=== PATIENT | female | born 1945 | race Caucasian/White ===

== ENCOUNTER → 2017-07-06 | Outpatient (CLI) | payer OTHER ==
[~2017-07-06] MED LIST: ASACOL HD800 MG PO; ASPIRIN325 PO; CALCIUM 600 +1 EAC1 PO; COQ-10100 MG PO; COREG CR20 MG PO; DITROPAN XL5 M1 PO; EVISTA PO; FISH OIL + D31 EACH PO; MAVIK2 MG PO; MULTIVITAMINS1 EAC7 PO; OMEPRAZOLE 20 M20 MG PO; SIMVASTATIN40 MG PO; SPIRONOLACTONE25 M1 PO; VITAMIN D1000 UNI1 PO; XANAX 0.5 MG0.5 MG PO
--- NOTE | ~2017-07-06 | 2DMMODE ---
[facility] [address] [place] [address] 2 D/M-MODE ECHOCARDIOGRAM Name: DIANAGINOSANCHEZCHARLY JULIO C Room #: REG [facility]#: [id number] Admission: 07/06/17 Attend Phys: Ori Bonilla Discharge: Date of : 43 Date of Service: 07/06/17 1510 Report #: [id number] THIS REPORT FOR: //name// APPROVED REPORT Study performed: 07/06/2017 13:35:06 EXAM: Comprehensive 2D, Doppler, and color-flow Echocardiogram Patient Location: Echo lab Status: routine BSA: 1.67 BP: 124/66 mmHg Other Information Study Quality: Adequate Indications Cardiomyopathy 2D Dimensions RVDd: 30.84 mm LVEF(%): 40.16 (>50%) IVSd: 11.70 (7-11mm) LVOT Diam: 21.67 (18-24mm) LVDd: 39.33 mm PWd: 11.51 (7-11mm) Ascending Ao: 25.41 (22-36mm) LVDs: 31.77 (25-40mm) Aortic Root: 25.83 mm IVC: 14.00 mm Park's LVEF: 40.16 % Volumes Left Atrial Volume (Systole) Single Plane 4CH: 46.82 mL Single Plane 2CH: 48.56 mL LA ESV Index: 30.00 mL/m2 Aortic Valve AoV Peak Nemesio.: 1.07 m/s AO Peak Gr.: 4.56 mmHg LVOT Max P.56 mmHg LVOT Max V: 0.62 m/s ERA Vmax: 2.16 cm2 Mitral Valve E/A Ratio: 0.7 MV Decel. Time: 180.87 ms MV E Max Nemesio.: 0.75 m/s [facility] [place] [address] 2 D/M-MODE ECHOCARDIOGRAM Name: CHARLY DAVENPORT Room #: NICOLA Barrera#: [id number] Admission: 07/06/17 Attend Phys: Ori Bonilla Discharge: Date of : 43 Date of Service: 07/06/17 1510 Report #: [id number] MV A Nemesio.: 1.09 m/s MV PHT: 52.45 ms IVRT: 148.79 ms Pulmonary Valve PV Peak Nemesio.: 0.63 m/s PV Peak Gr.: 1.61 mmHg Pulmonary Vein P Vein S: 0.56 m/s P Vein A: 0.33 m/s P Vein D: 0.25 m/s P Vein A Dur.: 117.6 msec P Vein S/D Ratio: 2.24 Tricuspid Valve TR Peak Nemesio.: 2.78 m/s RAP Estimate: 5.00 mmHg TR Peak Gr.: 30.92 mmHg Left Ventricle The left ventricle is normal size. There is normal left ventricular wall thickness. Left ventricular systolic function is moderate to severely decreased. LVEF is 35%. Mild diastolic dysfunction is present (impaired relaxation pattern). Right Ventricle The right ventricle is normal size. The right ventricular systolic function is normal. Atria Left atrium is at the upper limits of normal. The right atrium size is normal. Aortic Valve The aortic valve is normal in structure. Trace aortic regurgitation. There is no aortic valvular stenosis. Mitral Valve The mitral valve is normal in structure. There is no mitral valve regurgitation noted. No evidence of mitral valve stenosis. Tricuspid Valve The tricuspid valve is normal in structure. Mild tricuspid regurgitation. Pulmonic Valve Pulmonic valve is not well visualized. Trace to mild pulmonic regurgitation. [address] [address] 2 D/M-MODE ECHOCARDIOGRAM Name: HERBSANCHEZCHARLY JULIO C Room #: REG [facility]#: [id number] Admission: 07/06/17 Attend Phys: Ori Mckinnonchonnsherry Discharge: Date of : 43 Date of Service: 07/06/17 1510 Report #: [id number] Great Vessels The aortic root is normal in size. IVC is normal in size and collapses >50% with inspiration. Pericardium No pericardial effusion <Conclusion> The left ventricle is normal size. Left ventricular systolic function is moderate to severely decreased. LVEF is 35%. Mild diastolic dysfunction is present (impaired relaxation pattern). There is no aortic valvular stenosis. No pericardial effusion <ELECTRONICALLY SIGNED> By: Ori Bonilla MD 07/06/171509 09 09 Ori Bonilla MD /INF
== END ==
LOC: CV 12:02
DX: I50.30 Unspecified diastolic (congestive) heart failure (principal); I25.5 Ischemic cardiomyopathy

== ENCOUNTER 2017-08-30 06:46 | Observation (INO) | payer OTHER ==
[~2017-08-30] VITALS: Ht 160 cm; Wt 59.9 kg
--- NOTE | ~2017-08-30 | D ---
[facility] [place] [address] DISCHARGE SUMMARY Name: CHARLY DAVENPORT JULIO C Room #: 210-P [facility] Jocy Barrera#: [id number] Admission: 08/30/17 Attend Phys: Ori Bonilla MD Discharge: 08/31/17 Date of : 43 Report #: [id number] THIS REPORT FOR: //name// CC: Ori Purvise Jorge HISTORY OF PRESENT ILLNESS: As you know, the patient is a 71-year-old with history of cardiomyopathy, status post ICD implantation, who I recently saw in clinic and had some episodes of arrhythmia that were ATP. As the patient only had a single chamber ICD, it was difficult to determine if this was due to an SVT or VT. I had the patient wore an external monitor and showed frequent episodes of supraventricular tachycardia. As such, she was brought in for EP study. During the EP study, she clearly had an atrial tachycardia arising from the high atrium. I initially mapped this to the superior aspect of the right atrium at a septal location. Ablation at this site did not result in termination. As such, I prepped the patient to go transseptal and when I placed my intracardiac catheter into the right atrium, there appeared to be a trace pericardial effusion. It was unknown if this was something chronic or may have been related to my catheter placement. As such, I decided not to heparinize the patient and proceed with transseptal procedure. The procedure was concluded at that point. HOSPITAL COURSE: The patient was monitored in the CCU. She remained hemodynamically stable. Post-ablation, I did perform an echocardiogram that showed a trace effusion and on the day of discharge, this effusion remained unchanged with a second repeat echo. The patient was doing well and was not having any issues, she denied any chest pain, shortness of breath, PND, orthopnea and no significant groin pain. On telemetry, she did still have some episodes of atrial tachycardia, which were asymptomatic. She was tolerating the Multaq therapy, which I initiated yesterday. As such, she was deemed stable for discharge home with instructions to follow up in 2 weeks. Samples of Multaq were given to the patient prior to discharge. By: [id number] Ori Bonilla MD /nt
--- NOTE | ~2017-08-30 | 2DMMODE ---
[facility] [address] [employer] [place] [address] 2 D/M-MODE ECHOCARDIOGRAM Name: CHARLY DAVENPORT JULIO C Room #: 210-P ADM IN M.R.#: [id number] Admission: 08/30/17 Attend Phys: Ori Bonilla Discharge: Date of : 43 Date of Service: 08/30/17 1409 Report #: [id number] THIS REPORT FOR: //name// APPROVED REPORT Study performed: 08/30/2017 13:32:28 EXAM: Comprehensive 2D Echocardiogram Patient Location: Bedside Room #: 210 Status: routine BSA: 1.63 HR: 89 bpm BP: 145/69 mmHg Other Information Study Quality: Adequate Indications Effusion S^P ablation Left Ventricle The left ventricle is normal size. There is akinesis in the apical wall. There is hypokinesis in the apical anterior wall. There is hypokinesis in the apical septal wall. There is hypokinesis in the mid-anteroseptal wall. There is normal left ventricular wall thickness. Left ventricular systolic function is moderately decreased. LVEF is 35-40%. Right Ventricle The right ventricle is normal size. The right ventricular systolic function is normal. Device lead is present in the right ventricle. Atria Left atrium is dilated. The right atrium size is normal. Device lead is present in the right atrium. Aortic Valve The aortic valve is normal in structure. Mitral Valve The mitral valve is normal in structure. Tricuspid Valve The tricuspid valve is normal in structure. [facility] [address] [place] [address] 2 D/M-MODE ECHOCARDIOGRAM Name: CHARLY DAVENPORT JULIO C Room #: 210-P [facility] IN M.R.#: [id number] Admission: 08/30/17 Attend Phys: Ori Mckinnoncoxhealthsherry Discharge: Date of : 43 Date of Service: 08/30/17 1409 Report #: [id number] Pulmonic Valve Pulmonic valve is not well visualized. Great Vessels The aortic root is normal in size. IVC is normal in size and collapses >50% with inspiration. Pericardium Trace anterior pericardial effusion. <Conclusion> The left ventricle is normal size. There is akinesis in the apical wall. There is hypokinesis in the apical anterior wall. There is hypokinesis in the apical septal wall. There is hypokinesis in the mid-anteroseptal wall. LVEF is 35-40%. Device lead is present in the right ventricle. Left atrium is dilated. The right atrium size is normal. Device lead is present in the right atrium. The aortic valve is normal in structure. The mitral valve is normal in structure. The tricuspid valve is normal in structure. Pulmonic valve is not well visualized. Trace anterior pericardial effusion. <ELECTRONICALLY SIGNED> By: Edd Nichole MD 08/30/17 1409 08 08 Edd Nichole MD /INF
--- NOTE | ~2017-08-30 | 2DMMODE ---
[facility] [place] [address] 2 D/M-MODE ECHOCARDIOGRAM Name: CHARLY DAVENPORT JULIO C Room #: 210-P ADM IN M.R.#: [id number] Admission: 08/30/17 Attend Phys: Ori Bonilla Discharge: Date of : 43 Date of Service: 08/31/17 1050 Report #: [id number] THIS REPORT FOR: //name// APPROVED REPORT Study performed: 08/31/2017 08:43:25 EXAM: Comprehensive 2D, Doppler, and color-flow Echocardiogram Patient Location: Bedside Room #: 210 Status: routine BSA: 1.62 HR: 93 bpm BP: 103/60 mmHg Other Information Study Quality: Adequate Indications Pericardial Effusion ICD, S^P Ablatioin. Left Ventricle The left ventricle is normal size. Hypokinesis of septum and anterior cheng There is normal left ventricular wall thickness. Left ventricular ejection fraction is moderately decreased. LVEF is 35% Right Ventricle The right ventricle is normal size. The right ventricular systolic function is normal. Device lead is present in the right ventricle. Atria The left atrium size is normal. The right atrium size is normal. Aortic Valve The aortic valve is normal in structure. Mitral Valve The mitral valve is normal in structure. Tricuspid Valve The tricuspid valve is normal in structure. [facility] [address] [employer] [address] 2 D/M-MODE ECHOCARDIOGRAM Name: CHARLY DAVENPORT JULIO C Room #: 210-P ADM IN M.R.#: [id number] Admission: 08/30/17 Attend Phys: Ori Bonilla Discharge: Date of : 43 Date of Service: 08/31/17 1050 Report #: [id number] Pulmonic Valve Pulmonic valve is not well visualized. Great Vessels The aortic root is normal in size. IVC is normal in size and collapses >50% with inspiration. Pericardium Trace anterior pericardial effusion. <Conclusion> Left ventricular ejection fraction is moderately decreased. Hypokinesis of septum and anterior cheng. LVEF 35% Device lead is present in the right ventricle. The aortic valve is normal in structure. The mitral valve is normal in structure. Trace anterior pericardial effusion. <ELECTRONICALLY SIGNED> By: Asa Cunha MD, FACC 08/31/17 105 [id number] 49 Asa Cunha MD, FACC /INF
[2017-08-30 07:12] VITALS: BP 145/69
[2017-08-30 07:26] LABS: ABSOLUTE NEUTROPHILS 4.4 thou/uL (1.4-8.2); BASOPHILS 0.8 % (0.0-2.0); EOSINOPHILS 0.9 % (0.0-3.0); HEMOGLOBIN 14.2 gm/dL (12.0-15.0); LYMPHOCYTES 32.1 % (24.0-44.0); MCH 32.3 pg (26.0-34.0); MCHC 33.1 g/dL (28.0-37.0); MCV 97.5 fL (80.0-100.0); MONOCYTES 7.5 % (1.0-8.0); PLATELET COUNT 207 thou/uL (150-400); POLYS 58.7 % (36.0-66.0); RBC 4.41 mil/uL (4.20-5.00); RDW 13.8 % (10.5-14.5); WBC 7.6 thou/uL (4.0-11.0)
[2017-08-30 07:29] LABS: MANUAL DIFF NO
[2017-08-30 07:38] LABS: CALCIUM 9.8 mg/dL (8.5-10.1); CREATININE 0.7 mg/dL (0.6-1.0); POTASSIUM 3.9 mmol/L (3.5-5.1)
[2017-08-30 07:39] LABS: APTT 28.2 Seconds (24.5-32.8); INR 1.1
[2017-08-30 07:42] LABS: ALBUMIN 4.3 g/dL (3.4-5.0); TOTAL BILIRUBIN 0.5 mg/dL (<0.1-1.0); TOTAL PROTEIN 7.4 g/dL (6.4-8.2)
[2017-08-30] MEDS ORDERED: CRESTOR20 MG PO (14:01)
[2017-08-30 14:52] VITALS: BP 133/71
[2017-08-30 20:15] VITALS: BP 137/56
[2017-08-31 00:15] VITALS: BP 117/58
[2017-08-31 03:25] VITALS: BP 103/60
[2017-08-31 08:08] VITALS: BP 113/68
[2017-08-31] MEDS ORDERED: MULTAQ 400 MG400 MG PO (09:43)
[2017-08-31 09:52] VITALS: BP 113/68
[2017-08-31 11:51] VITALS: BP 130/82
== END 2017-08-31 13:40 | disposition home or self-care (01) ==
LOC: CATH 06:46 → 2N 13:49 → CATH 16:02 → ENTRNSPT 08-31 13:18 → EDTRNSPTSTS 08-31 13:22 → 2N 08-31 13:40
PROVIDERS: Internal Medicine Cardiovascular Disease
DX: I47.1 Supraventricular tachycardia (principal); I42.9 Cardiomyopathy, unspecified
CPT/HCPCS: 62110; 62900; 70005

== ENCOUNTER → 2019-11-20 | Outpatient (CLI) | payer OTHER ==
[~2019-11-20] MED LIST changes: +CRESTOR20 MG PO; +MULTAQ 400 MG400 MG PO
== END ==
LOC: SJCVC 14:29
DX: Z45.02 Encounter for adjustment and management of automatic implantable cardiac defibrillator (principal); R94.31 Abnormal electrocardiogram [ECG] [EKG]; I25.5 Ischemic cardiomyopathy; I73.9 Peripheral vascular disease, unspecified; I47.2 Ventricular tachycardia; I47.1 Supraventricular tachycardia; I25.10 Atherosclerotic heart disease of native coronary artery without angina pectoris; I10 Essential (primary) hypertension; Z79.82 Long term (current) use of aspirin; Z79.899 Other long term (current) drug therapy; Z87.891 Personal history of nicotine dependence; Z95.810 Presence of automatic (implantable) cardiac defibrillator

== ENCOUNTER → 2019-12-11 | Outpatient (CLI) | payer OTHER | LOC: SJCVCIMAG 11:59 | DX: I08.8 Other rheumatic multiple valve diseases (principal); I27.20 Pulmonary hypertension, unspecified; I70.202 Unspecified atherosclerosis of native arteries of extremities, left leg; Z95.810 Presence of automatic (implantable) cardiac defibrillator ==

== ENCOUNTER → 2020-05-20 | Outpatient (CLI) | payer OTHER | LOC: SJCVC 15:52 | PROVIDERS: ATTEND Internal Medicine Cardiovascular Disease | DX: Z45.02 Encounter for adjustment and management of automatic implantable cardiac defibrillator (principal); R94.31 Abnormal electrocardiogram [ECG] [EKG]; I25.10 Atherosclerotic heart disease of native coronary artery without angina pectoris; I25.5 Ischemic cardiomyopathy; I47.1 Supraventricular tachycardia; I25.2 Old myocardial infarction; Z95.810 Presence of automatic (implantable) cardiac defibrillator; Z79.899 Other long term (current) drug therapy; Z87.891 Personal history of nicotine dependence ==

== ENCOUNTER → 2020-05-29 | Outpatient (CLI) | payer OTHER | LOC: SJCVCIMAG 10:34 | PROVIDERS: ATTEND Internal Medicine Cardiovascular Disease | DX: I08.2 Rheumatic disorders of both aortic and tricuspid valves (principal); I25.2 Old myocardial infarction; I25.5 Ischemic cardiomyopathy; R06.00 Dyspnea, unspecified; Z95.0 Presence of cardiac pacemaker ==

== ENCOUNTER → 2020-06-01 | Outpatient (CLI) | payer OTHER | LOC: SJCVCIMAG 06:25 | PROVIDERS: ATTEND Internal Medicine Cardiovascular Disease | DX: I49.3 Ventricular premature depolarization (principal); I47.1 Supraventricular tachycardia; I25.10 Atherosclerotic heart disease of native coronary artery without angina pectoris; I25.5 Ischemic cardiomyopathy; Z95.810 Presence of automatic (implantable) cardiac defibrillator; Z87.891 Personal history of nicotine dependence ==

== ENCOUNTER → 2020-06-09 | Outpatient (CLI) | payer OTHER | LOC: SJCVC 14:30 | PROVIDERS: ATTEND Internal Medicine Cardiovascular Disease | DX: R94.31 Abnormal electrocardiogram [ECG] [EKG] (principal); I25.10 Atherosclerotic heart disease of native coronary artery without angina pectoris; I25.5 Ischemic cardiomyopathy; I10 Essential (primary) hypertension; I47.1 Supraventricular tachycardia; Z79.899 Other long term (current) drug therapy ==

== ENCOUNTER → 2021-10-28 | Outpatient (CLI) | payer OTHER | LOC: SJCVC 14:44 | PROVIDERS: ATTEND Internal Medicine Cardiovascular Disease | DX: I25.5 Ischemic cardiomyopathy (principal); I47.1 Supraventricular tachycardia; Z95.810 Presence of automatic (implantable) cardiac defibrillator ==